=== PATIENT | female | born 1975 | race Caucasian/White ===

== ENCOUNTER 2017-10-04 18:47 | Emergency (ER) | payer OTHER ==
[2017-10-04 19:08] VITALS: BP 113/70; RESP 18; TEMP 97.7
[2017-10-04] MEDS ORDERED: predniSONE 50 MG TAB PO STA (19:25)
[2017-10-04] MEDS ORDERED: ALBUTEROL NEBULIZED 7.5 MG, IPRATROPIUM NEBULIZED 0.5 MG, SODIUM CHLORIDE 0.9% NEBULIZ ... INHALATION ONE ×3 (19:25)
--- NOTE | 2017-10-04 19:28 | ED ---
General Adult HPI - General Chief complaint: Upper Respiratory Infection Stated complaint: Poss Pneumonia, fever Time Seen by Provider: 10/04/17 19:00 Source: patient, RN notes reviewed Mode of arrival: ambulatory Limitations: no limitations - History of Present Illness Initial comments: This a 41-year-old female presents emergency department stating that for the last week she's had a cough and coughing up a lot of sputum. Patient states she is also very short of breath here himself wheezing. Patient states she's taken breathing treatments but they don't seem to help. Patient states she is a smoker. Patient states she has had a temperature off-and-on during the week. Patient denies any chills. Patient denies any chest pain she does state it is tight but no pain. Patient denies any abdominal pain patient denies nausea vomiting diarrhea. Patient states her sugar has been high lately. Patient denies abdominal pain patient denies any nausea vomiting diarrhea. Patient denies any dysuria hematuria urinary frequency - Related Data Home Medications Medication Instructions Recorded Confirmed Venlafaxine HCl ER [Effexor Xr] 150 mg PO DAILY 04/17/16 10/04/17 Lisinopril-Hctz 10-12.5 mg 1 tab PO DAILY 10/04/17 10/04/17 [Zestoretic 10-12.5] QUEtiapine FUMARATE [SEROquel XR] 50 mg PO HS 10/04/17 10/04/17 metFORMIN HCL [Glucophage] 500 mg PO BID 10/04/17 10/04/17 Previous Rx's Medication Instructions Recorded Albuterol Inhaler [Ventolin Hfa 1 - 2 puff INHALATION Q6HR PRN #2 10/04/17 Inhaler] puff Azithromycin [Zithromax Tri-Griffin] 500 mg PO DAILY #3 tab 10/04/17 Benzonatate [Tessalon Perles] 200 mg PO TID PRN #12 capsule 10/04/17 predniSONE 40 mg PO DAILY #8 tab 10/04/17 Allergies Allergy/AdvReac Type Severity Reaction Status Date / Time No Known Allergies Allergy Verified 10/04/17 19:45 Review of Systems ROS Statement: Those systems with pertinent positive or pertinent negative responses have been documented in the HPI. ROS Other: All systems not noted in ROS Statement are negative. Past Medical History Past Medical History: Diabetes Mellitus Additional Past Medical History / Comment(s): HEP C History of Any Multi-Drug Resistant Organisms: None Reported Past Surgical History: No Surgical Hx Reported Past Psychological History: Anxiety Smoking Status: Current every day smoker Past Alcohol Use History: None Reported Past Drug Use History: None Reported General Exam - General Exam Comments Initial Comments: GENERAL: Patient is well-developed and well-nourished. Patient is nontoxic and well- hydrated and is in mild distress. ENT: Neck is soft and supple. No significant lymphadenopathy is noted. Oropharynx is clear. Moist mucous membranes. Neck has full range of motion without eliciting any pain. EYES: The sclera were anicteric and conjunctiva were pink and moist. Extraocular movements were intact and pupils were equal round and reactive to light. Eyelids were unremarkable. PULMONARY: Diffuse wheezing CARDIOVASCULAR: There is a regular rate and rhythm without any murmurs gallops or rubs. ABDOMEN: Soft and nontender with normal bowel sounds. No palpable organomegaly was noted. There is no palpable pulsatile mass. SKIN: Skin is clear with no lesions or rashes and otherwise unremarkable. NEUROLOGIC: Patient is alert and oriented x3. Cranial nerves II through XII are grossly intact. Motor and sensory are also intact. Normal speech, volume and content. Symmetrical smile. Cerebellar exam grossly intact. MUSCULOSKELETAL: Normal extremities with adequate strength and full range of motion. No lower extremity swelling or edema. No calf tenderness. LYMPHATICS: No significant lymphadenopathy is noted PSYCHIATRIC: Normal psychiatric evaluation. Limitations: no limitations Course Vital Signs 10/04/17 10/04/17 10/04/17 19:06 19:34 19:58 Temperature 97.7 F Pulse Rate 95 96 100 Respiratory 18 Rate Blood Pressure 113/70 O2 Sat by Pulse 100 Oximetry 10/04/17 20:09 Temperature Pulse Rate 108 H Respiratory Rate Blood Pressure O2 Sat by Pulse Oximetry Medical Decision Making - Medical Decision Making EKG shows normal sinus rhythm at 89 bpm NH interval is 118 QRS is 72 QT interval 34 QTC is 467. Patient's EKG shows no ST segment elevation or depression or T wave normalities are noted.r Patient's chest x-ray shows no acute abnormalities. Patient received 3 albuterol treatments with one Atrovent. Patient also received steroids. I will back into the room to reevaluate the patient she was much more clear with only an occasional wheeze patient stated she felt much better. patient received a Rocephin shot in the emergency department sent home with antibiotics and steroids and an albuterol inhale - Lab Data Lab Results 10/04/17 Range/Units 19:33 POC Glucose (mg/dL) 179 H (75-99) mg/dL POC Glu Titrator ID Tracy Sullivan Disposition Clinical Impression: Bronchospasm with bronchitis, acute Disposition: HOME SELF-CARE Condition: Good Instructions: Acute Bronchitis (ED), Bronchospasm (ED) Prescriptions: Albuterol Inhaler [Ventolin Hfa Inhaler] 1 - 2 puff INHALATION Q6HR PRN #2 puff PRN Reason: Difficulty breathing Azithromycin [Zithromax Tri-Griffin] 500 mg PO DAILY #3 tab Benzonatate [Tessalon Perles] 200 mg PO TID PRN #12 capsule PRN Reason: Cough predniSONE 40 mg PO DAILY #8 tab Referrals: None,Stated [Primary Care Provider] - 1-2 days Time of Disposition: 21:16
[2017-10-04 19:35] LABS: Glucose,Whole Blood 179 mg/dL (75-99)
[2017-10-04 20:51] VITALS: PULSE 108
[2017-10-04] MEDS ORDERED: cefTRIAXone 1,000 MG VIAL (IM USE) IM STA (21:19)
--- NOTE | 2017-10-04 21:28 | XR ---
EXAMINATION TYPE: XR chest 2V DATE OF EXAM: 10/04/2017 COMPARISON: 04/26/2012 INDICATION: Difficulty breathing TECHNIQUE: Frontal and lateral views of the chest are obtained. FINDINGS: The heart size is normal. The pulmonary vasculature is normal. The lungs are clear. IMPRESSION: 1. No acute pulmonary process.
== END 2017-10-04 21:54 | disposition home or self-care (01) ==
LOC: EC 18:47
DX: J20.9 Acute bronchitis, unspecified (principal); E11.9 Type 2 diabetes mellitus without complications; F41.9 Anxiety disorder, unspecified; F17.200 Nicotine dependence, unspecified, uncomplicated; Z79.84 Long term (current) use of oral hypoglycemic drugs; Z79.899 Other long term (current) drug therapy
CPT/HCPCS: 99284; 96372; 36415; 94644; 93005; 71020; J0696; J7512

== ENCOUNTER 2018-03-18 12:32 | Emergency (ER) | payer OTHER ==
[2018-03-18 12:57] VITALS: BP 143/87; PULSE 87; RESP 18; TEMP 98.7
--- NOTE | 2018-03-18 13:15 | ED ---
Recheck HPI - General Chief Complaint: Recheck/Abnormal Lab/Rx Stated Complaint: BLOODWORK Time Seen by Provider: 03/18/18 12:59 Source: patient, RN notes reviewed, old records reviewed Mode of arrival: ambulatory Limitations: no limitations - History of Present Illness Initial Comments: This patient is a 42-year-old female presents emergency Department with a chief complaint of concern for possible exposure to HIV 6 months ago. She is an IV drug user. Patient reports that she's had no symptoms. Denies any fever or chills or bodyaches. Patient states that she last used 6 months ago. She is currently on a methadone program. She denies any sexual transmitted infection symptoms. Denies any vaginal discharge or odors. Denies any burning with urination. She is not concerned for anything besides the possible risk of HIV. Patient states that she has had a history of hepatitis C. She is also searching for places for treatment. - Related Data Home Medications Medication Instructions Recorded Confirmed Venlafaxine HCl ER [Effexor Xr] 150 mg PO DAILY 04/17/16 10/04/17 Lisinopril-Hctz 10-12.5 mg 1 tab PO DAILY 10/04/17 10/04/17 [Zestoretic 10-12.5] QUEtiapine FUMARATE [SEROquel XR] 50 mg PO HS 10/04/17 10/04/17 metFORMIN HCL [Glucophage] 500 mg PO BID 10/04/17 10/04/17 Previous Rx's Medication Instructions Recorded Albuterol Inhaler [Ventolin Hfa 1 - 2 puff INHALATION Q6HR PRN #2 10/04/17 Inhaler] puff Azithromycin [Zithromax Tri-Griffin] 500 mg PO DAILY #3 tab 10/04/17 Benzonatate [Tessalon Perles] 200 mg PO TID PRN #12 capsule 10/04/17 predniSONE 40 mg PO DAILY #8 tab 10/04/17 Allergies Allergy/AdvReac Type Severity Reaction Status Date / Time No Known Allergies Allergy Verified 03/18/18 12:57 Review of Systems ROS Statement: Those systems with pertinent positive or pertinent negative responses have been documented in the HPI. ROS Other: All systems not noted in ROS Statement are negative. Past Medical History Past Medical History: Diabetes Mellitus Additional Past Medical History / Comment(s): HEP C History of Any Multi-Drug Resistant Organisms: None Reported Past Surgical History: No Surgical Hx Reported Past Psychological History: Anxiety Smoking Status: Current every day smoker Past Alcohol Use History: None Reported Past Drug Use History: IV Drug Use General Exam - General Exam Comments Initial Comments: 42-year-old female. Alert. No distress. Limitations: no limitations General appearance: alert, in no apparent distress Head exam: Present: atraumatic, normocephalic, normal inspection Eye exam: Present: normal appearance, PERRL, EOMI. Absent: scleral icterus, conjunctival injection, periorbital swelling ENT exam: Present: normal exam, mucous membranes moist Neck exam: Present: normal inspection. Absent: tenderness, meningismus, lymphadenopathy Respiratory exam: Present: normal lung sounds bilaterally. Absent: respiratory distress, wheezes, rales, rhonchi, stridor Cardiovascular Exam: Present: regular rate, normal rhythm, normal heart sounds. Absent: systolic murmur, diastolic murmur, rubs, gallop, clicks GI/Abdominal exam: Present: soft, normal bowel sounds. Absent: distended, tenderness, guarding, rebound, rigid Extremities exam: Present: normal inspection, full ROM, normal capillary refill. Absent: tenderness, pedal edema, joint swelling, calf tenderness Back exam: Present: normal inspection Neurological exam: Present: alert, oriented X3, CN II-XII intact Psychiatric exam: Present: normal affect Skin exam: Present: warm, dry, intact, normal color. Absent: rash Course Vital Signs 03/18/18 12:54 Temperature 98.7 F Pulse Rate 87 Respiratory 18 Rate Blood Pressure 143/87 O2 Sat by Pulse 99 Oximetry Medical Decision Making - Medical Decision Making 42-year-old female presents emergency room stay chief complaint of concern for HIV exposure. Patient has history of IV drug use. She reports that she last used 6 months ago. She reports she is a dirty needle. She does have a history of hepatitis C. Patient states that she just wants to have testing. Discussed the possibility of prophylactic treatment however this time patient states she would just prefer testing. Discussed these are send out labs we will call her back with the test results. She reports that she otherwise feels pretty well. No symptoms that she is concerned about. Give patient referral for GI specialist regards to treatment for hep C. 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 Patient also will receive a call in regards to outpatient lab testing. Return to the emergency department if any alarming signs or symptoms occur. Is patient prescribed a controlled substance at d/c from ED?: No If prescribed controlled substance>3 days was MAPS reviewed?: No When asked, does pt state using other controlled substances?: No Referrals: Dilshad Ortiz MD [Primary Care Provider] - 1-2 days Nessa Whittaker MD [STAFF PHYSICIAN] - 1-2 days Time of Disposition: 13:13
[2018-03-18 14:29] LABS: Hepatitis A AB IgM Index 0.03; Hepatitis A Antibody IgM NEGATIVE
[2018-03-18 20:46] LABS: Hepatitis B Core IgM Non-Reactive (Non-Reactive)
[2018-03-18 21:01] LABS: HIV AB P24 Non-Reactive (Non-Reactive); HIV P24 AG Non-Reactive (Non-Reactive)
== END 2018-03-18 13:24 | disposition home or self-care (01) ==
LOC: EC 12:32
DX: Z20.6 Contact with and (suspected) exposure to human immunodeficiency virus [HIV] (principal); F19.90 Other psychoactive substance use, unspecified, uncomplicated; F41.9 Anxiety disorder, unspecified; E11.9 Type 2 diabetes mellitus without complications; F17.200 Nicotine dependence, unspecified, uncomplicated; Z86.19 Personal history of other infectious and parasitic diseases; Z79.84 Long term (current) use of oral hypoglycemic drugs; Z79.899 Other long term (current) drug therapy
CPT/HCPCS: 36415; 80074; 86780; 87390; 99283

== ENCOUNTER 2018-07-07 21:43 | Emergency (ER) | payer OTHER ==
[2018-07-07 21:50] VITALS: BP 137/83; PULSE 105; TEMP 98.3
--- NOTE | 2018-07-07 22:09 | ED ---
General Adult HPI - General Chief complaint: Skin/Abscess/Foreign Body Stated complaint: feet problems/rash Time Seen by Provider: 07/07/18 22:06 Source: patient Mode of arrival: ambulatory Limitations: no limitations - History of Present Illness Initial comments: 42-year-old female presenting to the ED today for evaluation of pruritic rash on her hands, feet and legs. Patient reports that she may have had contact with somebody with scabies, and addition she's has spent multiple days on the beach and has noticed that she has worsening rash on her legs after sitting at the beach. She also notes that today while sitting on the beach in abating sutures she did feel that her buttocks got significantly rash. Patient denies any additional complaints including fevers, chills, nausea, vomiting, shortness of breath or wheezing. She has been treated for scabies in the past. She denies any concern for bedbugs. - Related Data Home Medications Medication Instructions Recorded Confirmed Venlafaxine HCl ER [Effexor Xr] 150 mg PO DAILY 04/17/16 10/04/17 Lisinopril-Hctz 10-12.5 mg 1 tab PO DAILY 10/04/17 10/04/17 [Zestoretic 10-12.5] QUEtiapine FUMARATE [SEROquel XR] 50 mg PO HS 10/04/17 10/04/17 metFORMIN HCL [Glucophage] 500 mg PO BID 10/04/17 10/04/17 Previous Rx's Medication Instructions Recorded Albuterol Inhaler [Ventolin Hfa 1 - 2 puff INHALATION Q6HR PRN #2 10/04/17 Inhaler] puff Azithromycin [Zithromax Tri-Griffin] 500 mg PO DAILY #3 tab 10/04/17 Benzonatate [Tessalon Perles] 200 mg PO TID PRN #12 capsule 10/04/17 predniSONE 40 mg PO DAILY #8 tab 10/04/17 Permethrin 5% Cream [Elimite] 1 applic TOPICAL ONCE #1 cream..g. 07/07/18 hydrOXYzine HCL [Atarax] 10 mg PO TID PRN #30 tab 07/07/18 Allergies Allergy/AdvReac Type Severity Reaction Status Date / Time No Known Allergies Allergy Verified 07/07/18 21:50 Review of Systems ROS Statement: Those systems with pertinent positive or pertinent negative responses have been documented in the HPI. ROS Other: All systems not noted in ROS Statement are negative. Past Medical History Past Medical History: Diabetes Mellitus Additional Past Medical History / Comment(s): HEP C History of Any Multi-Drug Resistant Organisms: None Reported Past Surgical History: No Surgical Hx Reported Past Psychological History: Anxiety Smoking Status: Current every day smoker Past Alcohol Use History: None Reported Past Drug Use History: IV Drug Use General Exam Limitations: no limitations General appearance: alert, in no apparent distress Head exam: Present: atraumatic, normocephalic Eye exam: Present: PERRL ENT exam: Present: normal exam Neck exam: Present: full ROM Respiratory exam: Absent: respiratory distress Cardiovascular Exam: Present: normal rhythm GI/Abdominal exam: Present: soft. Absent: distended Rectal exam: Present: deferred Extremities exam: Present: normal capillary refill. Absent: pedal edema Back exam: Present: full ROM Neurological exam: Present: alert, oriented X3 Psychiatric exam: Present: anxious Skin exam: Present: rash (Multiple pruritic spots on bilateral lower extremities with excoriations but no signs of infection, erythematous rash to the bilateral hands including the web spaces consistent with possible scabies) Course Vital Signs 07/07/18 07/07/18 21:47 22:37 Temperature 98.3 F Pulse Rate 105 H Respiratory 20 17 Rate Blood Pressure 137/83 O2 Sat by Pulse 98 Oximetry Medical Decision Making - Medical Decision Making Patient was seen and evaluated, rash on hands is consistent with scabies and will be treated with permethrin cream Rash on legs is consistent with bug bites, I suspect this is likely secondary to sand fleas as the patient states that worsens when she spends days on the beach. Prevention of secondary infection was discussed with the patient. Symptomatic treatment was discussed and prevention of further bites including using a bug repellent or wearing a cover up to the beach. All questions pertaining care were answered best my ability patient discharged in stable condition. Disposition Clinical Impression: Bug bites, Scabies exposure Disposition: HOME SELF-CARE Instructions: Permethrin (On the skin), Body Lice (ED), Scabies (ED), Bed Bugs (ED) Prescriptions: hydrOXYzine HCL [Atarax] 10 mg PO TID PRN #30 tab PRN Reason: itch Permethrin 5% Cream [Elimite] 1 applic TOPICAL ONCE #1 cream..g. Is patient prescribed a controlled substance at d/c from ED?: No Referrals: Gabriella Saini DO [Primary Care Provider] - 1-2 days
[2018-07-07] MEDS ORDERED: diphenhydrAMINE 50 MG CAP PO STA (22:23)
[2018-07-07 22:40] VITALS: RESP 17
== END 2018-07-07 22:40 | disposition home or self-care (01) ==
LOC: EC 21:43
DX: S80.862A Insect bite (nonvenomous), left lower leg, initial encounter (principal); S80.861A Insect bite (nonvenomous), right lower leg, initial encounter; Z20.7 Contact with and (suspected) exposure to pediculosis, acariasis and other infestations; E11.9 Type 2 diabetes mellitus without complications; F41.9 Anxiety disorder, unspecified; F17.200 Nicotine dependence, unspecified, uncomplicated; Z86.14 Personal history of Methicillin resistant Staphylococcus aureus infection; Z79.84 Long term (current) use of oral hypoglycemic drugs; Z79.899 Other long term (current) drug therapy; W57.XXXA Bitten or stung by nonvenomous insect and other nonvenomous arthropods, initial encounter
CPT/HCPCS: 99282

== ENCOUNTER 2018-07-27 22:06 | Emergency (ER) | payer OTHER ==
[2018-07-27 22:19] VITALS: BP 138/93; PULSE 97; RESP 18; TEMP 98.5
[2018-07-27] MEDS ORDERED: KETOROLAC 30 MG/ML 1 ML VIAL IM STA (22:24)
[2018-07-27] MEDS ORDERED: PENICILLIN V POTASSIUM 250 MG TAB PO STA (22:25)
--- NOTE | 2018-07-27 22:30 | ED ---
ENT HPI - General Chief complaint: Dental/Oral Stated complaint: facial swelling Time Seen by Provider: 07/27/18 22:20 Source: patient, RN notes reviewed Mode of arrival: ambulatory Limitations: no limitations - History of Present Illness Initial comments: This is a 42-year-old female who presents to the emergency department with chief complaint of dental pain and facial swelling. Patient states that she developed left upper dental pain and facial swelling yesterday. She states that the facial swelling has progressively worsened. Patient is a resident at [place]. She states she leaves tomorrow and is anticipating making a dentist appointment in [place] in the next couple of days. Patient denies any fevers or chills. Denies chest pain, shortness of breath, abdominal pain, nausea or vomiting, numbness or tingling, headache or vision changes. - Related Data Home Medications Medication Instructions Recorded Confirmed Venlafaxine HCl ER [Effexor Xr] 150 mg PO DAILY 04/17/16 10/04/17 Lisinopril-Hctz 10-12.5 mg 1 tab PO DAILY 10/04/17 10/04/17 [Zestoretic 10-12.5] QUEtiapine FUMARATE [SEROquel XR] 50 mg PO HS 10/04/17 10/04/17 metFORMIN HCL [Glucophage] 500 mg PO BID 10/04/17 10/04/17 Previous Rx's Medication Instructions Recorded Albuterol Inhaler [Ventolin Hfa 1 - 2 puff INHALATION Q6HR PRN #2 10/04/17 Inhaler] puff Azithromycin [Zithromax Tri-Griffin] 500 mg PO DAILY #3 tab 10/04/17 Benzonatate [Tessalon Perles] 200 mg PO TID PRN #12 capsule 10/04/17 predniSONE 40 mg PO DAILY #8 tab 10/04/17 Permethrin 5% Cream [Elimite] 1 applic TOPICAL ONCE #1 cream..g. 07/07/18 hydrOXYzine HCL [Atarax] 10 mg PO TID PRN #30 tab 07/07/18 Ibuprofen 600 mg PO Q6HR #20 tablet 07/27/18 Penicillin V Potassium [Pen Vee K] 500 mg PO QID 10 Days tab 07/27/18 Allergies Allergy/AdvReac Type Severity Reaction Status Date / Time No Known Allergies Allergy Verified 07/27/18 22:19 Review of Systems ROS Statement: Those systems with pertinent positive or pertinent negative responses have been documented in the HPI. ROS Other: All systems not noted in ROS Statement are negative. Past Medical History Past Medical History: Diabetes Mellitus Additional Past Medical History / Comment(s): HEP C History of Any Multi-Drug Resistant Organisms: None Reported Past Surgical History: No Surgical Hx Reported Past Psychological History: Anxiety Smoking Status: Current every day smoker Past Alcohol Use History: None Reported Past Drug Use History: Cocaine, IV Drug Use General Exam - General Exam Comments Initial Comments: General: Awake and alert, well-developed; in no apparent distress. HEENT: Head atraumatic, normocephalic. Pupils are equal, round and reactive to light. Extraocular movements intact. No periorbital tenderness. Oropharynx moist without erythema. Poor dentition throughout. Dental caries and fractures of teeth #12 and 14. Tooth #13 is missing. There is tenderness along the upper left gum line. No masses or areas of fluctuance are noted. There is soft tissue swelling, erythema and tenderness of the left cheek. No warmth. Neck: Supple. Normal ROM. Cardiovascular: Regular rate and rhythm. No murmurs, rubs or gallops. Chest symmetrical. Respiratory: Lungs clear to auscultation bilaterally. No wheezes, rales or rhonchi. Normal respiratory effort with no use of accessory muscles. Musculoskeletal: Normal ROM, no tenderness bilateral upper and lower extremities. Ambulating normally. Skin: [place], warm and dry without rashes or lesions. Neurological: Alert and oriented x3. CN II-XII grossly intact. Speech is fluent and answers are appropriate. No focal neuro deficits. Psychiatric: Normal mood and affect. No overt signs of depression or anxiety noted. l Limitations: no limitations Course Vital Signs 07/27/18 22:16 Temperature 98.5 F Pulse Rate 97 Respiratory 18 Rate Blood Pressure 138/93 O2 Sat by Pulse 98 Oximetry Medical Decision Making - Medical Decision Making This is a 42-year-old female who presents to the emergency department with chief complaint of dental pain and facial swelling. Patient reports left upper dental pain and swelling that started yesterday. Patient has poor dentition throughout with multiple dental caries and fractured teeth. Patient does have left cheek swelling and tenderness. There are no palpable abscesses within the oral cavity. Patient will be started on antibiotics and ibuprofen. Recommended following up with a dentist as soon as possible. Patient's vital signs are stable and she is in no acute distress. She denies fevers. She will be discharged home at this time. She is in agreement with plan and voices understanding. All questions were answered. Disposition Clinical Impression: Dental caries, Dental abscess Disposition: HOME SELF-CARE Condition: Good Instructions: Dental Caries (ED), Dental Abscess (ED) Additional Instructions: Please take medications as prescribed. Please follow up with a dentist as soon as possible. Please follow up with primary care provider within 1-2 days. Return to emergency department if symptoms should worsen or any concerns arise. Prescriptions: Ibuprofen 600 mg PO Q6HR #20 tablet Penicillin V Potassium [Pen Vee K] 500 mg PO QID 10 Days tab Is patient prescribed a controlled substance at d/c from ED?: No Referrals: Gabriella Saini DO [Primary Care Provider] - 1-2 days Time of Disposition: 22:30
== END 2018-07-27 23:16 | disposition home or self-care (01) ==
LOC: EC 22:06
DX: K02.9 Dental caries, unspecified (principal); K04.7 Periapical abscess without sinus; S02.5XXA Fracture of tooth (traumatic), initial encounter for closed fracture; E11.9 Type 2 diabetes mellitus without complications; F41.9 Anxiety disorder, unspecified; F17.200 Nicotine dependence, unspecified, uncomplicated; Z79.84 Long term (current) use of oral hypoglycemic drugs; Z79.899 Other long term (current) drug therapy; X58.XXXA Exposure to other specified factors, initial encounter
CPT/HCPCS: 99283; 96372; J1885

== ENCOUNTER 2021-08-12 18:33 | Emergency (ER) | payer OTHER ==
[2021-08-12] MEDS ORDERED: HALOPERIDOL LACTATE 5 MG/ML 1 ML VIAL IM STA (20:00)
[2021-08-12] MEDS ORDERED: LORazepam 2 MG/ML INJ IM STA (20:00)
--- NOTE | 2021-08-12 20:02 | ED ---
Psych HPI - General Source: patient Mode of arrival: ambulatory <Bulmaro Fallon - Last Filed: 08/12/21 22:40> <Marshall Leigh - Last Filed: 08/13/21 01:55> - General Chief Complaint: Psychiatric Symptoms Stated Complaint: Petition Time Seen by Provider: 08/12/21 19:41 - History of Present Illness Initial Comments: Is a 45-year-old female who was brought in by the police for paranoid delusions and erratic behavior. The patient would not provide any history. She states that she wants a large animal husbandry technician. She is refusing to speak with me or to allow me to examine her without a large animal husbandry technician present. She believes that I am recording her conversations. (Bulmaro Fallon) - Related Data Home Medications Medication Instructions Recorded Confirmed Venlafaxine HCl ER [Effexor Xr] 150 mg PO DAILY 04/17/16 08/12/21 Gabapentin [Neurontin] 300 mg PO TID 08/12/21 08/12/21 Insulin Glargine,Hum.rec.anlog 20 unit SQ DAILY 08/12/21 08/12/21 [Lantus Solostar Pen] QUEtiapine FUMARATE [SEROquel] 200 mg PO HS 08/12/21 08/12/21 busPIRone HCl [Buspar] 5 mg PO BID 08/12/21 08/12/21 Allergies Allergy/AdvReac Type Severity Reaction Status Date / Time No Known Allergies Allergy Verified 08/12/21 21:08 Review of Systems ROS Other: All systems not noted in ROS Statement are negative. <Bulmaro Fallon - Last Filed: 08/12/21 22:40> ROS Other: All systems not noted in ROS Statement are negative. <Marshall Leigh - Last Filed: 08/13/21 01:55> ROS Statement: Those systems with pertinent positive or pertinent negative responses have been documented in the HPI. Past Medical History Past Medical History: Diabetes Mellitus Additional Past Medical History / Comment(s): HEP C History of Any Multi-Drug Resistant Organisms: None Reported Past Surgical History: No Surgical Hx Reported Past Psychological History: Anxiety Smoking Status: Current every day smoker Past Alcohol Use History: None Reported Past Drug Use History: Cocaine, IV Drug Use <Bulmaro Fallon - Last Filed: 08/12/21 22:40> General Exam Limitations: no limitations <Bulmaro Fallon - Last Filed: 08/12/21 22:40> - General Exam Comments Initial Comments: Constitutional: [Awake alert] [Appears comfortable] Head: [Normocephalic atraumatic] Eyes: [no conjunctival injection] [No scleral icterus] [EOMI] Heart: Refused Lungs: Patient refused Abdomen: Patient refused Extremities: [Non edematous] Neuro: Awake and alert and moves all extremities Psych: Patient is paranoid and delusional. Has rapid pressured speech. Denies suicidal ideations. (Bulmaro Fallon) Course <Bulmaro Fallon - Last Filed: 08/12/21 22:40> Vital Signs 08/12/21 08/12/21 08/13/21 21:27 23:00 00:00 Temperature 98.1 F Pulse Rate 110 H 90 91 Respiratory 20 18 18 Rate Blood Pressure 114/71 110/56 113/53 O2 Sat by Pulse 97 99 99 Oximetry - Reevaluation(s) Reevaluation #1: 08/12/21 22:41 Pt resting comfortably. Awaiting EPS evaluation. (Bulmaro Fallon) Medical Decision Making - Lab Data Result diagrams: 08/12/21 20:48 08/12/21 20:48 <Bulmaro Fallon - Last Filed: 08/12/21 22:40> - Lab Data Result diagrams: 08/12/21 20:48 08/12/21 20:48 <Marshall Leigh - Last Filed: 08/13/21 01:55> - Lab Data Lab Results 08/12/21 08/12/21 08/12/21 Range/Units 20:46 20:48 20:48 WBC 7.2 (3.8-10.6) k/uL RBC 4.76 (3.80-5.40) m/uL Hgb 14.8 (11.4-16.0) gm/dL Hct 42.6 (34.0-46.0) % MCV 89.7 (80.0-100.0) fL MCH 31.1 (25.0-35.0) pg MCHC 34.6 (31.0-37.0) g/dL RDW 13.0 (11.5-15.5) % Plt Count 290 (150-450) k/uL MPV 7.3 Neutrophils % 69 % Lymphocytes % 26 % Monocytes % 3 % Eosinophils % 1 % Basophils % 0 % Neutrophils # 5.0 (1.3-7.7) k/uL Lymphocytes # 1.8 (1.0-4.8) k/uL Monocytes # 0.2 (0-1.0) k/uL Eosinophils # 0.1 (0-0.7) k/uL Basophils # 0.0 (0-0.2) k/uL Sodium 141 (137-145) mmol/L Potassium 3.5 (3.5-5.1) mmol/L Chloride 106 (98-107) mmol/L Carbon Dioxide 20 L (22-30) mmol/L Anion Gap 15 mmol/L BUN 15 (7-17) mg/dL Creatinine 0.84 (0.52-1.04) mg/dL Est GFR (CKD-EPI)AfAm >90 (>60 ml/min/1.73 sqM) Est GFR (CKD-EPI)NonAf 84 (>60 ml/min/1.73 sqM) Glucose 318 H (74-99) mg/dL POC Glucose (mg/dL) 304 H (75-99) mg/dL POC Glu Hair Spinner ID Calcium 9.9 (8.4-10.2) mg/dL Total Bilirubin 1.1 (0.2-1.3) mg/dL AST 49 H (14-36) U/L ALT 67 H (4-34) U/L Alkaline Phosphatase 100 (38-126) U/L Total Protein 9.1 H (6.3-8.2) g/dL Albumin 4.8 (3.5-5.0) g/dL Salicylates <1.0 mg/dL Acetaminophen <10.0 ug/mL Serum Alcohol <10 mg/dL Disposition <Bulmaro Fallon - Last Filed: 08/12/21 22:40> Is patient prescribed a controlled substance at d/c from ED?: No <Marshall Leigh - Last Filed: 08/13/21 01:55> Clinical Impression: Substance abuse, Psychosis Disposition: HOME SELF-CARE Condition: Fair Instructions (If sedation given, give patient instructions): Help Prevent Shilpa cide (ED) Referrals: None,Stated [Primary Care Provider] - 1-2 days
[2021-08-12 20:48] LABS: Glucose,Whole Blood 304 mg/dL (75-99)
[2021-08-12 20:57] LABS: Basophils % (A) 0 %; Eosinophils # (A) 0.1 k/uL (0-0.7); Eosinophils % (A) 1 %; HCT 42.6 % (34.0-46.0); HGB 14.8 gm/dL (11.4-16.0); Lymphocytes # (A) 1.8 k/uL (1.0-4.8); Lymphocytes % (A) 26 %; MCH 31.1 pg (25.0-35.0); MCHC 34.6 g/dL (31.0-37.0); MCV 89.7 fL (80.0-100.0); Mean Platelet Volume 7.3; Monocytes # (A) 0.2 k/uL (0-1.0); Monocytes % (A) 3 %; Neutrophils % (A) 69 %; Platelet Count 290 k/uL (150-450); RBC 4.76 m/uL (3.80-5.40); WBC 7.2 k/uL (3.8-10.6)
[2021-08-12 21:09] LABS: ALT 67 U/L (4-34); AST 49 U/L (14-36); Acetaminophen <10.0 ug/mL; African American GFR (CKD) >90 (>60 ml/min/1.73 sqM); Albumin 4.8 g/dL (3.5-5.0); Alcohol <10 mg/dL; Alkaline Phosphatase 100 U/L (38-126); Anion Gap 15 mmol/L; Blood Urea Nitrogen 15 mg/dL (7-17); Calcium 9.9 mg/dL (8.4-10.2); Carbon Dioxide 20 mmol/L (22-30); Chloride 106 mmol/L (98-107); Glucose 318 mg/dL (74-99); Non-African American GFR(CKD) 84 (>60 ml/min/1.73 sqM); Potassium 3.5 mmol/L (3.5-5.1); Salicylate <1.0 mg/dL; Sodium 141 mmol/L (137-145); Total Bilirubin 1.1 mg/dL (0.2-1.3); Total Protein 9.1 g/dL (6.3-8.2)
[2021-08-12] MEDS ORDERED: INSULIN REGULAR 100 UNIT/ML VIAL (IM/SQ) SQ ONE (21:21)
[2021-08-12 21:29] VITALS: TEMP 98.1
[2021-08-13 01:58] VITALS: BP 111/52; PULSE 79; RESP 20
== END 2021-08-13 01:56 | disposition home or self-care (01) ==
LOC: EC 18:33
DX: F19.10 Other psychoactive substance abuse, uncomplicated (principal); F29 Unspecified psychosis not due to a substance or known physiological condition; F22 Delusional disorders; E11.9 Type 2 diabetes mellitus without complications; F41.9 Anxiety disorder, unspecified; F17.200 Nicotine dependence, unspecified, uncomplicated; F14.90 Cocaine use, unspecified, uncomplicated
CPT/HCPCS: 36415; 80053; 85025; 80143; 80179; 99285; 96372 ×3; G0480; J2060; J1630; 80320